=== PATIENT | female | born 1995 | race Two or more races ===

== ENCOUNTER 2023-06-30 11:31 | Emergency (ER) | payer OTHER ==
[~2023-06-30] VITALS: Ht 170.2 cm; Wt 54.4 kg
[2023-06-30] MEDS ORDERED: COZAAR100 MG PO (14:02)
[2023-06-30] MEDS ORDERED: NIFEDIPINE20 MG (14:02)
[2023-06-30] MEDS ORDERED: PLANQUENIL (14:02)
[2023-06-30] MEDS ORDERED: ORAPRED ODT10 MG PO (14:02)
[2023-06-30 15:55] LABS: HEMATOCRIT 37.6 % (36.0-45.00); HEMOGLOBIN 12.7 g/dL (12.0-15.00); MEAN CELL VOLUME 97.4 fL (80.00-100.00); MEAN CORPUSCULAR HGB CONC 33.8 g/dl (32.0-36.0); PLATELET COUNT 238 K/uL (150-450); RED BLOOD COUNT 3.86 M/uL (4.00-6.00); RED CELL DISTRIBUTION WIDTH 15.4 % (11.5-14.5)
[2023-06-30 16:30] LABS: ALBUMIN 4.8 gm/dL (3.4-5.0); BILIRUBIN TOTAL 0.61 mg/dL (0.3-1.2); BILIRUBIN,CONJUGATED 0.15 mg/dL (0.0-0.2); BILIRUBIN,UNCONJUGATED 0.46 mg/dL (0.0-0.6); CALCIUM 9.9 mg/dL (8.5-10.1); CREATININE SERUM 0.76 mg/dL (0.55-1.02); GFR 90.62; POTASSIUM 3.44 mEq/L (3.5-5.1); TOTAL PROTEIN 9.5 gm/dL (6.4-8.2)
[2023-06-30 17:51] LABS: PH,URINE 7.5 (5.0-8.0); URINE APPEARANCE Clear; URINE BILIRRUBIN Negative (NEGATIVE); URINE BLOOD Large; URINE COLOR Yellow; URINE GLUCOSE Negative (NEGATIVE); URINE LEUKOCYTE Negative; URINE NITRATE Negative; URINE PROTEIN Negative (NEGATIVE)
[2023-06-30 17:56] LABS: URINE BACTERIA 515.2 uL (0.0-1933); URINE EPITHELIAL CELLS 19.6 uL (0.0-38.8); URINE WBC 10.1 uL (0.0-23.2)
[2023-06-30 18:11] LABS: URINE RBC 1.7 uL (0.0-20.8)
== END 2023-06-30 19:32 | disposition home or self-care (01) ==
LOC: ER 11:32
PROVIDERS: General Practice
DX: B34.9 Viral infection, unspecified (principal); I10 Essential (primary) hypertension; Z20.822 Contact with and (suspected) exposure to COVID-19